=== PATIENT | male | born 1955 | race African-American/Black ===

== ENCOUNTER 2023-10-08 11:30 | Emergency (ER) | payer OTHER ==
[2023-10-08 11:40] VITALS: BP 130/79; PULSE 84; RESP 18; TEMP 98.6; BMI 36.0
[2023-10-08 13:26] LABS: BASO % 0.5 % (0-2.0); EOS % 7.8 % (0-4.5); HEMATOCRIT 40.9 % (35.4-49); HEMOGLOBIN 13.5 GM/dL (11.7-16.9); LYMPH % 29.3 % (8-40); MCH 27.1 pg (25.7-33.7); MCHC 33.1 g/dl (32.0-35.9); MEAN PLT VOLUME 7.9 fl (7.5-11.1); MONO % 5.5 % (3.8-10.2); NEUT % 56.9 % (42.8-82.8); PLATELET COUNT 219 10^3/uL (134-434); RBC 4.98 M/mm3 (4.00-5.60); RDW 15.6 % (11.9-15.9); WHITE BLOOD COUNT 6.1 K/mm3 (4.0-10.0)
[2023-10-08 13:46] LABS: POTASSIUM 4.4 mmol/L (3.5-5.1)
[2023-10-08 13:47] LABS: CALCIUM 8.6 mg/dL (8.5-10.1)
[2023-10-08 13:49] LABS: ALBUMIN 3.3 g/dl (3.4-5.0); BLOOD UREA NITROGEN 9.2 mg/dL (7-18)
[2023-10-08 13:53] LABS: BILIRUBIN,TOTAL 0.2 mg/dL (0.2-1); TOT PROT 6.9 g/dl (6.4-8.2)
== END 2023-10-08 16:35 | disposition home or self-care (01) ==
LOC: JER 11:30
DX: M47.892 Other spondylosis, cervical region (principal); R20.0 Anesthesia of skin; R53.1 Weakness; M54.2 Cervicalgia
CPT/HCPCS: 36415; 72050-TC-FY; 72125-TC; 72141-TC; 80053; 82550; 82553; 84484; 85025; 93005; 93010; 99285-25